=== PATIENT | female | born 1940 | race Two or more races ===

== ENCOUNTER 2024-10-11 16:31 | Emergency (ER) | payer OTHER, SELFPAY ==
[2024-10-11 16:33] VITALS: BP 159/74
[2024-10-11 18:58] VITALS: BMI 24.1
--- NOTE | 2024-10-12 00:45 | ED.MUSCINJ ---
HPI-Injury
General
Chief Complaint: Fall
Source: patient and family
Exam Limitations: none
Time Seen by Provider: 10/11/24 18:45
Nursing documentation reviewed up to this point in time: agreed with
History of Present Illness-Injury
Is this injury a work related problem?: No
Is pt an associate of [facility]?: No
Initial Injury comments:
Patient to ED after fall YESTERDAY. States she was climbing up on a chair to reach something and fell. Landed on left side. She states she hit the left mery of her head on her left shoulder. Able to get self up on own. [place] ok yesterday but
states today left shoulder and rib pains became worse. Brought to ED for eval
Phy Exam
General Physical Exam
General Presentation: well appearing and no apparent distress
General age: appears stated age
General Skin: warm and dry
General Habitus: normal
Cardiovascular Exam
Cardiovascular Exam: regular rate/rhythm and no edema
Pulmonary Exam
Pulmonary Exam: lungs clear and no respiratory distress
Neurological Exam
Neurological Exam: alert, oriented x3, CN II-XII intact, no sensory deficits, speech normal and normal gait
Musculoskeletal Exam
Musculoskeletal Exam: neuro vasc intact
Skin Exam
Skin Exam: normal color, warm/dry and no rash
Psychiatric Exam
Psychiatric Exam: normal mood/affect
Injury Course
Orders/Labs/Results
Orders:
Orders
10/11/24 16:37
CR Ribs-sally 3 Vw No Pa Chest Urgent
Comment:
Reason For Exam: fall
CR Shoulder, Trauma - Left Urgent
Comment:
Reason For Exam: fall
10/11/24 19:14
Shoulder Immobilizer Left- Tx ONCE
ED Attending Note
-
Portions of this chart may have been created with voice recognition software.� Occasional wrong word or��sound alike� substitutions may have occurred due to the inherent limitations of voice recognition software.
Discharge Plan
Departure
Patient Disposition: Home (Routine Discharge)
Date of Disposition: 10/11/24
Time of Disposition: 19:12
Patient with high blood pressure during this ER visit?: No
Condition: Good
Covid-19: Not Applicable
Discharge Problem:
Chest wall contusion, Shoulder sprain
Instructions: Head Injury in Adults (DC), Contusion (DC), Preventing falls in adults, Shoulder Sprain ED
Referrals:
Ed Santa MD [Active] - Next open appointment
UNKNOWN - PT DOES,NOT KNOW [Family Provider] -
Interventions
Interventions:
*Risk Screen - Suicide Last Done: 10/11/24 16:33
*General Assessment Last Done: 10/11/24 16:33
*Neglect/Abuse Screening Last Done: 10/11/24 16:33
*ED- Fall Risk Assessment Last Done: 10/11/24 19:03
*ED COVID-19 Vaccine History Last Done: 10/11/24 19:03
*Nursing Disposition Last Done: 10/11/24 19:41
ED-Musculoskeletal Assessment Last Done: 10/11/24 18:58
ED- Neurological Assessment Last Done: 10/11/24 18:58
ED-Skin Assessment Last Done: 10/11/24 18:58
Discharge Date and Time
Discharge Date/Time: 10/11/24 19:44
Print Language: IRISH
== END 2024-10-11 19:44 | disposition home or self-care (01) ==
LOC: EMR 16:31
PROVIDERS: EMERGENCY PHYSICIAN Emergency Medicine
DX: S20.219A Contusion of unspecified front wall of thorax, initial encounter (principal); S43.402A Unspecified sprain of left shoulder joint, initial encounter; W07.XXXA Fall from chair, initial encounter
CPT/HCPCS: 99283; 71110; 73030